=== PATIENT | female | born 1970 | race Caucasian/White ===

== ENCOUNTER 2016-11-27 06:11 | Day surgery (SDC) | payer BC ==
--- NOTE | 2016-11-26 13:09 | HP ---
Satellite [facility] - Chief Complaint Chief Complaint: right knee pain - Past Medical History Allergies/Adverse Reactions: Allergies Allergy/AdvReac Type Severity Reaction Status Date / Time No Known Drug Allergies Allergy Verified 09/04/16 11:36 ...LMP: 02/07/13 ...LMP Comment: 2013 - Current Medications Current Medications: Medication Instructions Recorded Buprenorphine HCl/Naloxone HCl 5.7 each SL BID 11/19/16 [Suboxone 8 mg-2 mg Sl Tablets] Sertraline HCl [Zoloft -] 25 mg PO DAILY 11/19/16 Satellite Physical Exam - Physical Examination General Appearance: Well Nourished, Well Developed, Alert & Oriented x3 ENT: Clear Lung: Normal air movement Heart: Regular rate & rhythm Extremities: Other (right knee- + swelling, + ttp medially, decr rom, nvi xray show severe medial djd) Neurological: Intact, Alert, Oriented Satellite Impression/Plan - Impression/Plan Impression: right medial knee djd Operative Procedure: right medial amadeo ukr Date to be Performed: 11/27/16
[2016-11-27] MEDS ORDERED: GABAPENTIN 300 MG CAPSULE (FP) PO ONE (06:20)
[2016-11-27] MEDS ORDERED: oxyCODONE HCL 10 MG SUSTAINED ACTING TABLET PO ONE (06:20)
[2016-11-27] MEDS ORDERED: CELECOXIB 200 MG CAPSULE PO ONE (06:20)
[2016-11-27] MEDS ORDERED: CEFAZOLIN 2 GM in DEXTROSE 5%-WATER - 50 ML IVPB ONE (06:20)
[2016-11-27] MEDS ORDERED: TRANEXAMIC ACID 1000 MG/10 ML VIAL IVPUSH ONE (06:20)
[2016-11-27] MEDS ORDERED: ROPIVICAINE 0.2%/MORPH PF/KETOROLAC - 51ML DISP.SYRINGE IA ONE ×3 (06:20→09:17)
[2016-11-27 06:47] VITALS: BMI 29.2
[2016-11-27] MEDS ORDERED: MIDAZOLAM HCL 2 MG/2 ML SINGLE DOSE VIAL ONE ×2 (06:52→08:06)
[2016-11-27] MEDS ORDERED: DEXAMETHASONE SOD PHOSPHATE/PF 10 MG/ML SDV ONE (06:52)
[2016-11-27] MEDS ORDERED: ROPIVACAINE HCL 0.5% 30ML VIAL ONE (06:52)
[2016-11-27] MEDS ORDERED: ceFAZolin SODIUM 1 GM VIAL ONE ×2 (07:11→07:56)
[2016-11-27] MEDS ORDERED: GELATIN, ABSORBABLE 100 EACH SPONGE TP ONE (07:11)
[2016-11-27] MEDS ORDERED: THROMBIN (BOVINE) 5,000 UNIT VIAL TP ONE ×2 (07:11→08:55)
[2016-11-27] MEDS ORDERED: PROPOFOL 20 ML ONE ×2 (07:55→08:51)
[2016-11-27] MEDS ORDERED: TRANEXAMIC ACID 1000 MG/10 ML VIAL ONE ×2 (07:56)
[2016-11-27] MEDS ORDERED: DEXAMETHASONE SOD PHOSPHATE 4 MG/1 ML VIAL ONE (09:32)
[2016-11-27] MEDS ORDERED: ONDANSETRON 4 MG/2 ML VIAL ONE (09:32)
[2016-11-27] MEDS ORDERED: MAG HYDROX/AL HYDROX/SIMETH 30 ML UNIT-DOSE CUP PO PRN (09:40)
--- NOTE | 2016-11-27 09:43 | OP ---
Operative Note - Note: Operative Date: 11/27/16 (stephanie) Pre-Operative Diagnosis: right knee medial djd Operation: right medial amadeo ukr Post-Operative Diagnosis: Same as Pre-op Surgeon: Rob Clemente Consultant Electronics: Jerrell Sims) Anesthesiologist/VELVET WEAVER: Elsi Mao Anesthesia: Spinal, Local Specimens Removed: bone fragments Estimated Blood Loss (mls): 100 Operative Report Dictated: Yes
[2016-11-27] MEDS ORDERED: LACTATED RINGERS SOLUTION 1,000 ML IV SCH (09:45)
[2016-11-27] MEDS ORDERED: ONDANSETRON 4 MG/2 ML VIAL IVPB PRN (09:59)
[2016-11-27] MEDS ORDERED: MULTIVITAMINS (DAILY MVI) TABLET (FP) PO SCH (10:00)
[2016-11-27] MEDS ORDERED: PANTOPRAZOLE 40 MG TABLET (FP) PO SCH (10:00)
[2016-11-27] MEDS: ACETAMINOPHEN 325 MG TABLET (FP) PO SCH ×3 (10:45→23:17)
[2016-11-27] MEDS: oxyCODONE HCL 5 MG TABLET PO PRN ×3 (11:06→21:42)
[2016-11-27] MEDS: CEFAZOLIN 2 GM/D5W 50 ML IVPB SCH ×2 (16:00→23:13)
[2016-11-27] MEDS: SERTRALINE HCL 25 MG TABLET (FP) PO SCH (16:08)
--- NOTE | 2016-11-27 16:39 | SPEC ---
DATE OF OPERATION: 11/27/2016 OPERATION: Right medial unicompartmental knee replacement with robotic-assisted navigation (MAKOplasty) and patelloplasty. PREOPERATIVE DIAGNOSIS: Degenerative joint disease, right knee. POSTOPERATIVE DIAGNOSIS: Degenerative joint disease, right knee. SURGICAL ATTENDING: Rob Clemente MD ASSISTANT PROFESSOR OF ENGLISH: eJrrell Sims MD; GELACIO Kelley ANESTHESIA: Spinal and regional. CLOSURE: Medial Sachin components with a No. 3 femur, No. 4 tibia, 8 mm polyethylene, No. 1 Vicryl to fascia, 0 and 2-0 subcutaneous and 3-0 Monocryl subcuticular to skin, with skin glue for skin, 4-0 undyed Vicryl for pin sites. ESTIMATED BLOOD LOSS: Negligible. TOURNIQUET TIME: Approximately 24 minutes. COMPLICATIONS: None. CONDITION: To recovery room in stable condition. PROCEDURE: Patient was taken to the operating room. Spinal and femoral block anesthesia was administered by the anesthesiologist. IV Kefzol and TXA were administered prophylactically prior to the case. A well-padded pneumatic tourniquet was placed on the right proximal thigh. The right lower extremity was prepped and draped in the usual sterile fashion. A 6 cm longitudinal incision was made along the medial retinaculum from mid patella toward the tibial tubercle. Hemostasis was achieved using Bovie cautery. Sharp dissection was carried down to the level of the capsule, which was opened the entire length of incision. Subperiosteal dissection in the anterior medial proximal tibia. Periosteal elevator was used to facilitate this dissection. Partial fat pad excision was performed to gain visualization. A femoral and tibial checkpoint were malleted into place. Two bicortical pins were drilled through small stab incisions into the femur, 1 handbreadth above the patella. Two bicortical pins were drilled into the tibia 1 handbreadth below the tibial tubercle through small stab incisions as well. To these, pins were attached to clamps and the navigation arrays. The knee was then registered with the navigation device by ascertaining the center of rotation of the hip, both the medial and lateral malleoli, at approximately 50 points on the tibia and femur. Registration was within SACHIN parameters, being less than half a millimeter. At this time, the medial osteophytes on both the femur and tibia were removed by use of rongeur. The knee was taken through a range of motion and with stressing the medial compartment open at 0, 30, 60, 90 and 120 degrees. Stress points were obtained in order to develop a flexion / extension and a tightness / looseness graph. The robotic navigation device obtained a virtual tracking of the knee and found that the traction was in excellent position. The components were manipulated virtually in order to obtain a flexion/extension; tightness/looseness graph was then +/- 1 mm. The robot was then brought into the field and registered with the navigation device. The robot was then used to la the bone on both the femur and the tibia to the specifications and direction of the navigation device. All excess bone, osteophytes, and cartilage were removed, including the medial meniscus. Care was taken to protect the MCL throughout the case. The trial components were then placed into the knee with the appropriate polyethylene plastic trial liner. The knee was taken through a range of motion and the graph on the navigation device was then used again to confirm ideal position of the components and ideal tightness/looseness of the components. The trial components were removed, along with the checkpoints and the array. The knee was exsanguinated with an Esmarch bandage and tourniquet inflated to 175 mmHg. The knee was post-antibiotic irrigated and then dried and then Avitene and Gelfoam were placed to aid in hemostasis. The real components were then cemented in using modern generation cement techniques with antibiotics, cement and pressurization. All excess cement was removed. The knee was thoroughly inspected to remove any excess cement and bone fragments. The real polyethylene component was then clipped into place. Range of motion revealed excellent range of motion and good tensioning throughout. The knee was post-antibiotic irrigated. The fascia was closed using 2-0 Vicryl interrupted suture. The tourniquet was deflated. Total tourniquet time was approximately 24 minutes. Hemostasis was obtained. Another dose of TXA was administered. The subcutaneous layer was closed with 2-0 Vicryl, 3-0 Monocryl subcuticular for skin. A pain cocktail was infused throughout the soft tissue. The pin sites were irrigated and closed with 4-0 Vicryl and skin glue was used for all incisions. Sterile Aquacel dressing was placed on all incisions followed by a dressing from the toes to the thigh. Patient was transferred to the recovery room in stable condition. No complications. Primitivo [id number]
[2016-11-27] MEDS: oxyCODONE HCL 10 MG SUSTAINED ACTING TABLET PO SCH (21:43)
[2016-11-27] MEDS: GABAPENTIN 300 MG CAPSULE (FP) PO SCH (21:44)
[2016-11-27] MEDS: SENNOSIDES/DOCUSATE COMBO (SENNA PLUS) TABLET (UD) PO SCH (21:44)
[2016-11-27] MEDS ORDERED: LORazepam 1 MG TABLET PO ONE (22:49)
[2016-11-27] MEDS ORDERED: LORazepam 0.5 MG TABLET ONE (22:51)
[2016-11-28] MEDS: oxyCODONE HCL 5 MG TABLET PO PRN ×2 (02:14→06:28)
[2016-11-28] MEDS ORDERED: LORazepam 0.5 MG TABLET ONE (02:28)
[2016-11-28] MEDS ORDERED: LORazepam 1 MG TABLET PO ONE (02:29)
[2016-11-28] MEDS: ACETAMINOPHEN 325 MG TABLET (FP) PO SCH ×2 (06:28→06:29)
[2016-11-28 06:43] VITALS: BP 91/52; PULSE 65; TEMP 98.5
[2016-11-28] MEDS ORDERED: ASPIRIN 325 MG TABLET PO SCH (08:00)
--- NOTE | 2016-11-28 08:25 | PN ---
Progress Note (short form) - Note Progress Note: Ortho Pt seen and examined s/p right medial amadeo ukr pod #1 Selected Entries 11/28/16 06:43 Temperature 98.5 F Pulse Rate 65 Respiratory 19 Rate Blood Pressure 91/52 dressing c/d/i, calf soft, nt rom 0-60, nvi a/p PT dvt ppx pain control d/c home today f/u in 1 week
--- NOTE | 2016-11-28 08:26 | DS ---
Physical Examination Vital Signs: Vital Signs Temperature 98.5 F 11/28/16 06:43 Pulse Rate 65 11/28/16 06:43 Respiratory Rate 19 11/28/16 07:28 Blood Pressure 91/52 11/28/16 06:43 O2 Sat by Pulse Oximetry (%) 96 11/28/16 07:28 Discharge Summary Reason For Visit: RIGHT KNEE OSTEOARTHRITIS Procedures: Principal: s/p right medial amadeo ukr Hospital Course: admitted for elective right medial amadeo ukr, uneventful post-op, stable for d/c Condition: Good - Instructions Diet, Activity, Other Instructions: Post-op Instructions-Partial Knee Replacement Call the office for a follow-up appointment in 1 week - [phone] Aspirin 325mg daily for 6 weeks. Pain medication was sent into your pharmacy. Apply Graduated Compression Stockings (TEDs) to both lower extremities- remove daily for hygiene ONLY Apply Sequential Compression Device (SCDs) to both Lower extremities remove for PT and hygiene ONLY Apply cold packs to affected area for 15 minutes every 2 hours. Physical Therapist will come to your home for the first 5 days. You will be set up with outpatient PT at your first post-operative visit. Patient may ambulate as tolerated-encourage self care (at least every 2-3 hours while awake) with walker or cane Maintain Aquacel (waterproof) dressing to operative wound (will be removed by surgeon at first office visit) Shower with Aquacel dressing in place-if Aquacel integrity compromised, remove and apply dry sterile dressing and notify Orthopedist. DO NOT SHOWER unless Orthopedists approves without Aquacel dressing CONTACT THE OFFICE FOR ANY CHANGE IN YOUR CONDITION (for example-fever greater than 102 degrees,excessive bleeding from operative site, purulent drainage, severe swelling or pain) GO TO THE EMERGENCY ROOM IF THERE IS A MEDICAL EMERGENCY Knee Precautions: * Keep a rolled towel under affected heel while in bed or chair (to keep knee in extension) * Keep affected leg elevated except during mealtimes * DO NOT PLACE PILLOW UNDER AFFECTED KNEE * If you have any questions, please do not hesitate to call the office - [phone]. Referrals: Jerrell Sims MD [Staff Physician] - Disposition: VNS/HOME HEALTH CARE - Home Medications Comprehensive Discharge Medication List: Ambulatory Orders Sertraline HCl [Zoloft -] 25 mg PO DAILY 11/19/16 Aspirin [ASA -] 325 mg PO DAILY@0800 tablet 11/27/16 Buprenorphine HCl/Naloxone HCl [Zubsolv 5.7-1.4 mg Tablet Sl] 1 each SL BID Oxycodone HCl/Acetaminophen [Percocet 10-325 mg Tablet] 1 each PO Q6H #50 tablet MDD 4 11/27/16 Oxycodone HCl [Roxicodone -] 15 mg PO Q4H PRN #50 tablet MDD 6 11/28/16
[2016-11-28] MEDS: GABAPENTIN 300 MG CAPSULE (FP) PO SCH (10:11)
[2016-11-28] MEDS: SENNOSIDES/DOCUSATE COMBO (SENNA PLUS) TABLET (UD) PO SCH (10:11)
[2016-11-28] MEDS: oxyCODONE HCL 10 MG SUSTAINED ACTING TABLET PO SCH (10:11)
[2016-11-28] MEDS: SERTRALINE HCL 25 MG TABLET (FP) PO SCH (10:12)
== END 2016-11-28 11:37 | disposition home health service (06) ==
LOC: FASU 06:11 → FM/S 06:20 → FASU 11-28 11:37
PROVIDERS: ATTEND Orthopaedic Surgery
PROC: 8E0YXBZ Computer Assisted Procedure of Lower Extremity (ICD-10-PCS; 2016-11-27)
PROC: 0SRC0LZ Replacement of Right Knee Joint with Medial Unicondylar Synthetic Substitute, Open Approach (ICD-10-PCS; principal; 2016-11-27 08:00)
DX: M17.11 Unilateral primary osteoarthritis, right knee (principal)
CPT/HCPCS: 20985; 27446; C1776; 73560-TC-RT; 84703; 94760; 97116-GP; 97162-PG

== ENCOUNTER → 2016-12-22 | Emergency (ER) | payer BC ==
[~2016-12-22] MED LIST: CEPHALEXIN MONOHYDRATE 250 MG CAPSULE (FP) ONE; CEPHALEXIN MONOHYDRATE 500 MG CAPSULE (UD) PO ONE; HYDROmorphone HCL 2 MG TABLET ONE; HYDROmorphone HCL 2 MG TABLET PO ONE
[2016-12-22 19:06] VITALS: BP 137/97; PULSE 108; TEMP 98.4; BMI 29.4
--- NOTE | 2016-12-22 19:44 | PDOC ---
History of Present Illness - General Chief Complaint: Edema Stated Complaint: RT KNEE SWOLLEN Time Seen by Provider: 12/22/16 19:24 History Source: Patient Exam Limitations: No Limitations - History of Present Illness Initial Comments: 12/22/16 19:36 46yo Female patient with history of drug abuse (Percocet), currently on Zubsolv presents to ED c/o right lower leg swelling. Patient states Nov 27, she has a partial knee replacement by Dr. Sims/Bryn. She states she has been experiencing intermittent swelling "here and there," was on Oxycodone 15mg x 8 days, then tapered down to Tramadol 50mg "which did nothing for me." Patient states yesterday her right calf/leg began swelling more than usual with pain to calf when ambulating. Patient called her PCP and was instructed to seek evaluation in ED, but waited until today to see if symptom would resolve. Her symptom have actually worsened and is concerned about clot. Patient reports she did not take her 7pm dose of Zubsolv so she can be medicated for pain. Patient states the only narcotic pain medication she can take is Dilaudid. She denies CP , fever, back pain, abd pain, n/v/d, diff breathing, coughing or any other complaints at this time. PCP Dr. Rodriguez Ortho Dr. Sims/Bryn logo Welcome Fuentes Daniels Update Personal Info | FAQ | Help | Search Results Help Mandatory Electronic Prescribing Effective as of January 22, 2016. Additional information pertaining to electronic prescribing may be accessed at the following link: http://www.health.mo.gov/professionals/narcotic/electronic_ prescribing/ Patient Search Multi-Patient Search Reports Drug Listing Designation My CHRISTINE Numbers Data Detail Level: Printer-Friendly View | Show Extended View Confidential Drug Utilization Report Search Terms: Heather Cr, 1970 Search Date: 12/22/2016 07:35:43 PM The Drug Utilization Report below displays all of the controlled substance prescriptions, if any, that your patient has filled in the last twelve months. The information displayed on this report is compiled from pharmacy submissions to the Department, and accurately reflects the information as submitted by the pharmacies. This report was requested by: Fuentes Daniels | Reference #: [id number] Others' Prescriptions Patient Name: Heather Cr Date: 1970 Address: [address] [place] [address] [address] JUAREZ [employer] [place] [address] Sex: Female Rx Written Rx Dispensed Drug Quantity Days Supply Prescriber Name 12/19/2016 12/19/2016 zubsolv 5.7-1.4 mg tablet sl 60 30 Henrique Koch MD 12/19/2016 12/19/2016 methylphenidate 5 mg tablet 60 30 Talya Fields 12/11/2016 12/11/2016 tramadol hcl 50 mg tablet 60 30 Alvaro Rodriguez MD 12/11/2016 12/11/2016 zolpidem tartrate 10 mg tablet 14 14 Alvaro Rodriguez MD 11/28/2016 11/28/2016 oxycodone hcl 15 mg tablet 50 8 RaymundoNain 11/22/2016 11/22/2016 zolpidem tartrate 10 mg tablet 14 14 Alvaro Rodriguez MD 11/09/2016 11/11/2016 zubsolv 5.7-1.4 mg tablet sl 60 30 Alvaro Rodriguez MD 11/09/2016 11/10/2016 methylphenidate 5 mg tablet 60 30 Alvaro Rodriguez MD 10/12/2016 10/13/2016 zubsolv 5.7-1.4 mg tablet sl 60 30 Alvaro Rodriguez MD 10/12/2016 10/12/2016 methylphenidate 5 mg tablet 60 30 Alvaro Rodriguez MD 09/14/2016 09/14/2016 methylphenidate 5 mg tablet 55 27 Alvaro Rodriguez MD 09/14/2016 09/14/2016 zubsolv 5.7-1.4 mg tablet sl 60 30 Alvaro Rodriguez MD 08/17/2016 08/17/2016 methylphenidate 5 mg tablet 60 30 Alvaro Rodriguez MD 08/17/2016 08/17/2016 zubsolv 5.7-1.4 mg tablet sl 60 30 Alvaro Rodriguez MD 07/20/2016 07/20/2016 methylphenidate 5 mg tablet 60 30 Alvaro Rodriguez MD 07/20/2016 07/20/2016 zubsolv 5.7-1.4 mg tablet sl 60 30 Alvaro Rodriguez MD 06/22/2016 06/22/2016 methylphenidate 5 mg tablet 60 30 Alvaro Rodriguez MD 06/22/2016 06/22/2016 zubsolv 5.7-1.4 mg tablet sl 60 30 Alvaro Rodriguez MD 05/31/2016 05/31/2016 zolpidem tartrate 10 mg tablet 14 14 Alvaro Rodriguez MD 05/25/2016 05/25/2016 zubsolv 5.7-1.4 mg tablet sl 60 30 Alvaro Rodriguez MD 05/25/2016 05/25/2016 methylphenidate 5 mg tablet 60 30 Alvaro Rodriguez MD 04/24/2016 04/24/2016 methylphenidate 5 mg tablet 60 30 Henrique Koch MD 04/24/2016 04/24/2016 zubsolv 5.7-1.4 mg tablet sl 60 30 Henrique Koch MD 03/23/2016 03/24/2016 methylphenidate 5 mg tablet 60 30 Alvaro Rodriguez MD 03/23/2016 03/23/2016 zubsolv 5.7-1.4 mg tablet sl 60 30 Alvaro Rodriguez MD 02/24/2016 02/24/2016 zolpidem tartrate 5 mg tablet 30 30 Alvaro Rodriguez MD 02/24/2016 02/24/2016 methylphenidate 5 mg tablet 60 30 Alvaro Rodriguez MD 02/24/2016 02/24/2016 zubsolv 5.7-1.4 mg tablet sl 60 30 Alvaro Rodriguez MD 01/26/2016 01/26/2016 methylphenidate 5 mg tablet 60 30 Henrique Koch MD 01/26/2016 01/26/2016 zubsolv 5.7-1.4 mg tablet sl 60 30 Henrique Koch MD 12/29/2015 01/03/2016 zubsolv 5.7-1.4 mg tablet sl 60 30 Alvaro Rodriguez MD Patient Name: Heather Cr Date: 1970 Address: [place] [address] Sex: Female Rx Written Rx Dispensed Drug Quantity Days Supply Prescriber Name 12/05/2016 12/05/2016 oxycodone-acetaminophen 10-325 mg tablet 60 10 Jerrell Sims MD Patient Name: Heather Cr Date: 1970 Address: [address] [place] [address] Sex: Female Rx Written Rx Dispensed Drug Quantity Days Supply Prescriber Name 12/29/2015 12/29/2015 methylphenidate 5 mg tablet 60 30 Alvaro Rodriguez MD Occurred: reports: yesterday Severity: Yes: severe Lower Extremity Pain Location: right: leg (Swelling and Pain) Method of Injury: Yes: other (S/P surgery) Modifying Factors: improves with: rest, other (Leg elevation) Associated Symptoms: None reported. Lower Ext. Injury Location - Specific Injury Location Legs: right: pain, swelling, left: normal inspection, non-tender, bilateral: normal range of motion Ankle: right soft tissue tenderness, right pain, right swelling, left normal inspection, left non-tender, bilateral no evidence of injury, bilateral normal range of motion Foot: right foot swelling, left foot normal inspection, bilateral foot no evidence of injury, bilateral foot normal range of motion Extremity Pain Location - Extremity Pain Location Extremity Pain Locations: right: leg Past History - Travel Traveled outside of the country in the last 30 days: No Close contact w/someone who was outside of country & ill: No - Past Medical History Allergies/Adverse Reactions: Allergies Allergy/AdvReac Type Severity Reaction Status Date / Time No Known Drug Allergies Allergy Verified 12/22/16 19:03 Home Medications: Ambulatory Orders Sertraline HCl [Zoloft -] 25 mg PO DAILY 11/19/16 Aspirin [ASA -] 325 mg PO DAILY@0800 tablet 11/27/16 Buprenorphine HCl/Naloxone HCl [Zubsolv 5.7-1.4 mg Tablet Sl] 1 each SL BID Oxycodone HCl/Acetaminophen [Percocet 10-325 mg Tablet] 1 each PO Q6H #50 tablet MDD 4 11/27/16 Oxycodone HCl [Roxicodone -] 15 mg PO Q4H PRN #50 tablet MDD 6 11/28/16 Oxycodone HCl [Roxicodone] 15 mg PO Q4H #50 tablet MDD 6 11/28/16 Cephalexin [Keflex] 500 mg PO BID #10 capsule 12/22/16 Anemia: No Asthma: No Cancer: No Cardiac Disorders: Yes CVA: No COPD: No CHF: No Dementia: No Diabetes: No GI Disorders: Yes (sphincter of christos spasms) Disorders: Yes (u stones) HTN: No Hypercholesterolemia: No Kidney Stones: Yes Liver Disease: No Seizures: No Thyroid Disease: Yes (hypothyroid) - Surgical History Abdominal Surgery: No Appendectomy: No Cardiac Surgery: No Cholecystectomy: Yes Lung Surgery: No Neurologic Surgery: No Orthopedic Surgery: Yes (R. Knee arthroscopic sx.) - Immunization History Immunization Up to Date: Yes - Psycho/Social/Smoking Cessation Hx Anxiety: No Suicidal Ideation: No Smoking Status: Yes Smoking History: Current every day smoker Have you smoked in the past 12 months: Yes Number of Cigarettes Smoked Daily: 20 Information on smoking cessation initiated: No 'Breaking Loose' booklet given: 11/20/13 Hx Alcohol Use: No Drug/Substance Use Hx: No Substance Use Type: Prescribed Hx Substance Use Treatment: No Review of Systems - Review of Systems Able to Perform ROS?: Yes Is the patient limited Taiwanese proficient: No Musculoskeletal: Yes: Other (RLE Swelling and Pain) All Other Systems: Reviewed and Negative *Physical Exam - Vital Signs Last Vital Signs Temp Pulse Resp BP Pulse Ox 98.4 F 108 H 20 137/97 97 12/22/16 19:03 12/22/16 19:03 12/22/16 19:03 12/22/16 19:03 12/22/16 19:03 - Physical Exam General Appearance: Yes: Nourished, Appropriately Dressed. No: Apparent Distress, Mild Distress, Moderate Distress, Severe Distress Neck: positive: Trachea midline, Supple. negative: Stridor Respiratory/Chest: positive: Lungs Clear, Normal Breath Sounds. negative: Respiratory Distress, Accessory Muscle Use, Labored Respiration, Rhonchi, Stridor, Wheezing Cardiovascular: positive: Regular Rhythm, Regular Rate. negative: Edema, JVD, Murmur Musculoskeletal: positive: Normal Inspection. negative: CVA Tenderness, Vertebral Tenderness Extremity: positive: Normal Capillary Refill, Normal Range of Motion, Tender, Pedal Edema, Swelling, Calf Tenderness (+ Debora's Sign). negative: Normal Inspection (Rt LE) Integumentary: positive: Normal Color, Dry, Warm, Swelling. negative: Erythema , Hives, Petechiae, Rash, Ecchymosis, Bruising Neurologic: positive: melt house supervisor II-XII NML intact, Fully Oriented, Alert, Normal Mood/ Affect, Normal Response, Motor Strength 5/5 ED Treatment Course - LABORATORY CBC & Chemistry Diagram: 12/22/16 19:50 12/22/16 19:50 Progress Note - Progress Note Progress Note: Report Viewer powered by: STEPHY Name: Shaye Romero : 1970 Sex: F Study Date & Time: 12/22/201620:11:43 Description: DUPLEX VASCULAR US-1 LEG Head Shipper: (chiquita) Begin of Report Content Referring Physician: Scottie Daniels Patient Name: Heather Cr THIS IS A PRELIMINARY REPORT FROM [facility] DATE OF SERVICE: 2016-12-22 20:11:43.0 IMAGES: 22 EXAM: right lower extremity venous duplex study HISTORY:Swelling and pain COMPARISON: None. FINDINGS: No acute DVT. THIS DOCUMENT HAS BEEN ELECTRONICALLY SIGNED Karolina MD Chuyita 12/22/2016 20:50 EST M.D. Please call [facility] [phone] ([phone]) with questions. End of Report Content *DC/Admit/Observation/Transfer Diagnosis at time of Disposition: Right leg swelling - Discharge Dispostion Disposition: HOME Condition at time of disposition: Stable Admit: No - Prescriptions Prescriptions: Cephalexin [Keflex] 500 mg PO BID #10 capsule - Referrals Referrals: Jerrell Sims MD [Staff Physician] - Alvaro Rodriguez MD [Staff Physician] - - Patient Instructions Printed Discharge Instructions: DI for Leg Pain Additional Instructions: FOLLOW UP WITH DR. SIMS/BRYN OR DR. RODRIGUEZ FOR FURTHER EVALUATION. CALL TO SCHEDULE APPOINTMENT. TAKE MEDICATIONS PRESCRIBED. KEEP LEG ELEVATED, TYLENOL OR MOTRIN FOR PAIN. AVOID PROLONGED STANDING. APPLY ICE TO AFFECTED AREA EVERY 4-6 HOURS FOR 10-15 MINS ON AND OFF. RETURN IF ANY CONCERNS FOR FURTHER EVALUATION. Print Language: KYRGYZ
[2016-12-22 20:12] LABS: BASOPHIL 1.1 % (0-2.0); EOSINOPHIL 5.7 % (0-4.5); MCH 31.6 pg (25.7-33.7); MCHC 34.3 g/dl (32.0-36.0); MEAN CELL VOLUME 92.1 fl (80-96); MEAN PLT VOLUME 7.8 fl (7.5-11.1); NEUTROPHILS 47.6 % (42.8-82.8); PLATELET COUNT 337 K/MM3 (134-434); RDW 13.1 % (11.6-15.6); WHITE BLOOD COUNT 6.7 K/mm3 (4.0-10.0)
[2016-12-22 20:19] LABS: URINE APPEARANCE CLEAR; URINE BILIRUBIN NEGATIVE (NEGATIVE); URINE BLOOD NEGATIVE (NEGATIVE); URINE COLOR LTYELLOW; URINE GLUCOSE (UA) NEGATIVE (NEGATIVE); URINE KETONE NEGATIVE (NEGATIVE); URINE LEUK ESTERASE NEGATIVE (NEGATIVE); URINE NITRITE NEGATIVE (NEGATIVE); URINE PROTEIN NEGATIVE (NEGATIVE); URINE UROBILINOGEN NEGATIVE E.U./dl (0.2-1.0)
[2016-12-22 20:24] LABS: INR 1.01 (0.82-1.09); PROTHROMBIN TIME (PATIENT) 11.1 SEC (9.98-11.88)
[2016-12-22 20:33] LABS: ALBUMIN 3.6 g/dl (3.4-5.0); ANION GAP 7 (8-16); BILIRUBIN,TOTAL 0.2 mg/dL (0.2-1.0); CALCIUM 9.3 mg/dL (8.5-10.1); CO2 28 mmol/L (21-32); CREATININE 0.7 mg/dL (0.55-1.02); GLUCOSE,RANDOM 88 mg/dL (74-106); SGOT/AST 20 U/L (15-37); SGPT/ALT 25 U/L (12-78); TOT PROT 6.9 g/dl (6.4-8.2)
[2016-12-22 20:34] LABS: ALK PHOS 74 U/L (45-117)
== END | disposition home or self-care (01) ==
LOC: JER 18:50
DX: R60.0 Localized edema (principal)
CPT/HCPCS: 36415; 80053; 81003; 84703; 85025; 85610; 93971-TC; 99283-25

== ENCOUNTER 2019-01-27 08:32 | Day surgery (SDC) | payer BC ==
[2019-01-12 10:41] VITALS: BMI 37.1
[2019-01-27 08:51] VITALS: TEMP 98.2
[2019-01-27] MEDS ORDERED: BETAMET ACET/BETAMET NA PH 30 MG/5 ML VIAL ONE (10:25)
[2019-01-27] MEDS ORDERED: BUPIVACAINE HCL/PF 0.25% (2.5MG/ML) 10 ML VIAL ONE (10:25)
[2019-01-27] MEDS ORDERED: MIDAZOLAM HCL 2 MG/2 ML SINGLE DOSE VIAL ONE (11:28)
[2019-01-27] MEDS ORDERED: PROPOFOL 20 ML ONE (11:28)
[2019-01-27] MEDS ORDERED: LIDOCAINE HCL/PF 2% SDV 5ML VIAL ONE (11:28)
[2019-01-27] MEDS ORDERED: BUPIVACAINE HCL/PF 0.5% (5MG/ML) 10 ML VIAL ONE (11:33)
[2019-01-27] MEDS ORDERED: IOHEXOL 180 MG/1 ML ML IJ ONE (11:39)
[2019-01-27] MEDS ORDERED: LIDOCAINE HCL 1%, 10 MG/ML (20ML VIAL) NR ONE (11:39)
[2019-01-27] MEDS ORDERED: BETAMET ACET/BETAMET NA PH 30 MG/5 ML VIAL NR ONE (11:39)
[2019-01-27] MEDS ORDERED: BUPIVACAINE HCL/PF (5 MG/ML) 30 ML VIAL IJ ONE ×2 (11:39)
[2019-01-27 12:32] VITALS: BP 114/76; PULSE 86
== END 2019-01-27 13:15 | disposition home or self-care (01) ==
LOC: JASU-SURG 08:32
PROVIDERS: ATTEND Physical Medicine & Rehabilitation
PROC: 3E0T33Z Introduction of Anti-inflammatory into Peripheral Nerves and Plexi, Percutaneous Approach (ICD-10-PCS; 2019-01-27)
PROC: 3E0T3BZ Introduction of Anesthetic Agent into Peripheral Nerves and Plexi, Percutaneous Approach (ICD-10-PCS; principal; 2019-01-27 10:00)
DX: G90.521 Complex regional pain syndrome I of right lower limb (principal); M46.96 Unspecified inflammatory spondylopathy, lumbar region
CPT/HCPCS: 84703

== ENCOUNTER 2019-05-22 08:22 | Day surgery (SDC) | payer BC ==
[2019-05-21 16:00] VITALS: BMI 37.4
[2019-05-22] MEDS ORDERED: IOHEXOL 180 MG/1 ML ML IT ONE (09:46)
[2019-05-22] MEDS ORDERED: PROPOFOL 20 ML ONE ×2 (09:52)
[2019-05-22] MEDS ORDERED: BUPIVACAINE HCL/PF 0.5% (5MG/ML) 10 ML VIAL ONE (09:56)
[2019-05-22] MEDS ORDERED: BUPIVACAINE HCL/PF 0.5% (5MG/ML) 10 ML VIAL IJ ONE (10:00)
[2019-05-22] MEDS ORDERED: BETAMET ACET/BETAMET NA PH 30 MG/5 ML VIAL IM ONE (10:00)
[2019-05-22] MEDS ORDERED: LIDOCAINE HCL 1%, 10 MG/ML (20ML VIAL) INF ONE (10:00)
[2019-05-22 12:06] VITALS: BP 130/70; PULSE 80; TEMP 97.8
== END 2019-05-22 11:45 | disposition home or self-care (01) ==
LOC: JASU-SURG 08:22
PROVIDERS: ATTEND Physical Medicine & Rehabilitation
PROC: 3E0R33Z Introduction of Anti-inflammatory into Spinal Canal, Percutaneous Approach (ICD-10-PCS; 2019-05-22)
PROC: 3E0R3BZ Introduction of Anesthetic Agent into Spinal Canal, Percutaneous Approach (ICD-10-PCS; principal; 2019-05-22 09:30)
DX: M46.96 Unspecified inflammatory spondylopathy, lumbar region (principal); M54.5 Low back pain; I10 Essential (primary) hypertension; J44.9 Chronic obstructive pulmonary disease, unspecified; E66.01 Morbid (severe) obesity due to excess calories; K21.9 Gastro-esophageal reflux disease without esophagitis
CPT/HCPCS: 76000-TC-FY

== ENCOUNTER 2019-07-20 07:21 | Day surgery (SDC) | payer BC ==
[2019-07-17 13:01] VITALS: BMI 37.0
[2019-07-20] MEDS ORDERED: ONDANSETRON 4 MG/2 ML VIAL IVPUSH PRN (07:54)
[2019-07-20] MEDS ORDERED: ACETAMINOPHEN 325 MG TABLET (FP) PO PRN (07:54)
[2019-07-20] MEDS ORDERED: oxyCODONE HCL 5 MG TABLET PO PRN (07:54)
[2019-07-20] MEDS ORDERED: LIDOCAINE HCL 1%, 10 MG/ML (20ML VIAL) ONE (08:58)
[2019-07-20] MEDS ORDERED: BETAMET ACET/BETAMET NA PH 30 MG/5 ML VIAL ONE (08:58)
[2019-07-20] MEDS ORDERED: BUPIVACAINE HCL/PF 0.25% (2.5MG/ML) 10 ML VIAL ONE (08:58)
[2019-07-20] MEDS ORDERED: TRIAMCINOLONE ACET 40MG/1ML VIAL ONE (09:00)
[2019-07-20] MEDS ORDERED: BETAMET ACET/BETAMET NA PH 30 MG/5 ML VIAL IM ONE (09:00)
[2019-07-20] MEDS ORDERED: LIDOCAINE HCL 1%, 10 MG/ML (20ML VIAL) NR ONE ×2 (09:00→09:22)
[2019-07-20] MEDS ORDERED: IOHEXOL 180 MG/1 ML ML IJ ONE ×2 (09:00→09:22)
[2019-07-20] MEDS ORDERED: TRIAMCINOLONE ACET 40MG/1ML VIAL IM ONE ×2 (09:00→09:22)
[2019-07-20] MEDS ORDERED: BUPIVACAINE HCL/PF 0.5% (5MG/ML) 10 ML VIAL IJ ONE ×2 (09:00→09:22)
[2019-07-20] MEDS ORDERED: MIDAZOLAM HCL 2 MG/2 ML SINGLE DOSE VIAL ONE (09:12)
[2019-07-20] MEDS ORDERED: PROPOFOL 20 ML ONE (09:12)
[2019-07-20] MEDS ORDERED: BUPIVACAINE HCL/PF 0.5% (5 MG/ML) 30 ML VIAL IJ ONE (09:37)
[2019-07-20 09:40] VITALS: TEMP 97.8
[2019-07-20 10:24] VITALS: BP 134/91; PULSE 76
--- NOTE | 2019-08-05 21:52 | PROC ---
Procedure Note Procedure: Date of service: 07/20/2019 Preoperative Diagnosis: Low back pain and Bilateral SIJ dysfunction Postoperative Diagnosis: Same Procedure Performed: Bilateral SIJ steroid injection with dye under Fluoroscopy Anesthesia: Local / MAC Anesthesiologist: Procedure: I discussed with the patient in detail about the risks, benefits and alternatives to treatment not only limited to infection, headache, numbness, weakness and injury to nerves, blood vessels and muscles. The patient understood, agreed and signed the written consent. The patient was placed in the prone position with the head, abdomen and legs supported with the pillows. The lumbosacral area was prepped and draped with Betadine times three in a sterile fashion The right SIJ was identified under the C-arm and at this level , with a #25 G, 1-1/2 needle 2 ml of 1% Lidocaine was infiltrated in the skin and subcutaneous tissue. A #22 gauge 3-1/2 inch spinal needle was used to approach SI joint with intermittent fluoroscopy. After negative aspiration of blood, 1 ml of omnipaque 180 (radio opaque dye) was used to confirm the spread of dye in the joint space. A solution containing Kenalog 40 mg and 3 ml of bupivacaine 0.5% was prepared, and 2 ml was injected into the SI joint level. While the needle was withdrawn, 1 ml of Lidocaine was infiltrated. The similar procedure was repeated on Left SIJ. Bleeding was checked. Betadine was wiped off. A sterile bandage was placed. The patient tolerated the procedure well. There were no immediate complications. The patient was transferred to the recovery room. The patient was observed for some time and discharged with a family member as per ASC criteria. The patient was told to apply ice at the injection site. If any problem call me or report to [facility]. Terrance Goddard M.D.
== END 2019-07-20 10:26 | disposition home or self-care (01) ==
LOC: JASU-SURG 07:21
PROVIDERS: ATTEND Physical Medicine & Rehabilitation
PROC: 3E0U3BZ Introduction of Anesthetic Agent into Joints, Percutaneous Approach (ICD-10-PCS; 2019-07-20)
PROC: 3E0U33Z Introduction of Anti-inflammatory into Joints, Percutaneous Approach (ICD-10-PCS; principal; 2019-07-20 08:30)
DX: M51.26 Other intervertebral disc displacement, lumbar region (principal); M54.16 Radiculopathy, lumbar region; Z72.0 Tobacco use
CPT/HCPCS: 76000-TC-FY

== ENCOUNTER 2021-05-29 04:24 | Day surgery (SDC) | payer BC ==
[2021-05-25 11:21] VITALS: BMI 39.3
[2021-05-29] MEDS ORDERED: MIDAZOLAM HCL 2 MG/2 ML SINGLE DOSE VIAL ONE (13:44)
[2021-05-29] MEDS ORDERED: IOHEXOL 180 MG/1 ML ML IJ ONE (13:58)
[2021-05-29] MEDS ORDERED: BUPIVACAINE HCL/PF 0.25% (2.5MG/ML) 10 ML VIAL IJ ONE (13:59)
[2021-05-29] MEDS ORDERED: PROPOFOL 20 ML ONE (13:59)
[2021-05-29] MEDS ORDERED: LIDOCAINE HCL 1%, 10 MG/ML (50 mL VIAL) SQ ONE ×2 (14:01)
[2021-05-29] MEDS ORDERED: DEXAMETHASONE SOD PHOSPHATE 10 MG/1 ML VIAL IVPUSH ONE (14:02)
[2021-05-29 15:24] VITALS: TEMP 97.8
[2021-05-29 16:10] VITALS: BP 112/72; PULSE 82
== END 2021-05-29 16:11 | disposition home or self-care (01) ==
LOC: JASU-SURG 04:24
PROVIDERS: ATTEND Physical Medicine & Rehabilitation
PROC: 3E0T3BZ Introduction of Anesthetic Agent into Peripheral Nerves and Plexi, Percutaneous Approach (ICD-10-PCS; 2021-05-29)
PROC: 3E0T33Z Introduction of Anti-inflammatory into Peripheral Nerves and Plexi, Percutaneous Approach (ICD-10-PCS; principal; 2021-05-29 14:30)
DX: G90.521 Complex regional pain syndrome I of right lower limb (principal)
CPT/HCPCS: 76000-TC-FY; J1100

== ENCOUNTER 2023-06-10 04:21 | Day surgery (SDC) | payer BC ==
[2023-06-05 16:49] VITALS: BMI 37.5
[2023-06-10] MEDS ORDERED: MIDAZOLAM HCL 2 MG/2 ML SINGLE DOSE VIAL ONE ×2 (11:23→11:40)
[2023-06-10] MEDS ORDERED: LIDOCAINE HCL 1% PRESERVATIVE FREE - 30ML VIAL IJ ONE (11:30)
[2023-06-10] MEDS ORDERED: IOHEXOL 180 MG/1 ML ML IJ ONE (11:30)
[2023-06-10] MEDS ORDERED: DEXAMETHASONE SOD PHOSPHATE 10 MG/1 ML VIAL IVPUSH ONE (11:31)
[2023-06-10] MEDS ORDERED: BUPIVACAINE HCL/PF 0.5% (5MG/ML) 10 ML VIAL IJ ONE (11:31)
[2023-06-10] MEDS ORDERED: BUPIVACAINE HCL/PF 0.25% (2.5MG/ML) 10 ML VIAL ONE (12:25)
[2023-06-10] MEDS ORDERED: ACETAMINOPHEN INJECTION 100 ML IVPB ONE (12:31)
[2023-06-10] MEDS ORDERED: ACETAMINOPHEN 1000 MG/100 ML BAG IVPB ONE (12:32)
[2023-06-10 14:40] VITALS: BP 124/72; PULSE 66; RESP 16; TEMP 98
== END 2023-06-10 13:48 | disposition home or self-care (01) ==
LOC: JASU-SURG 04:21
PROVIDERS: ATTEND Physical Medicine & Rehabilitation
PROC: 3E0T33Z Introduction of Anti-inflammatory into Peripheral Nerves and Plexi, Percutaneous Approach (ICD-10-PCS; 2023-06-10)
PROC: 3E0T3BZ Introduction of Anesthetic Agent into Peripheral Nerves and Plexi, Percutaneous Approach (ICD-10-PCS; principal; 2023-06-10 10:00)
DX: M79.604 Pain in right leg (principal); M79.671 Pain in right foot
CPT/HCPCS: 76000-TC-FY; J1100

== ENCOUNTER 2024-01-17 10:19 | Inpatient (IN) | payer BC ==
[2024-01-17] MEDS: ALBUTEROL SO4 2.5/IPRATROPIUM 0.5 INH SOL 3 ML VIAL.NEB. NEB SCH (11:42)
[2024-01-17] MEDS ORDERED: ALBUTEROL SO4 2.5/IPRATROPIUM 0.5 INH SOL 3 ML VIAL.NEB. NEB ONE (11:43)
[2024-01-17] MEDS ORDERED: predniSONE 20 MG TABLET (UD) ONE (12:02)
[2024-01-17] MEDS: predniSONE 20 MG TABLET (UD) PO ONE (12:02)
[2024-01-17 12:13] LABS: BASO % 0.1 % (0-2.0); HEMATOCRIT 39.7 % (32.4-45.2); HEMOGLOBIN 13.5 GM/dL (10.7-15.3); LYMPH % 7.3 % (8-40); MCH 30.6 pg (25.7-33.7); MEAN CELL VOLUME 89.8 fl (80-96); MEAN PLT VOLUME 7.4 fl (7.5-11.1); MONO % 10.1 % (3.8-10.2); NEUT % 82.5 % (42.8-82.8); PLATELET COUNT 262 10^3/uL (134-434); RBC 4.42 M/mm3 (3.60-5.2); RDW 14.4 % (11.6-15.6); WHITE BLOOD COUNT 6.5 K/mm3 (4.0-10.0)
[2024-01-17 12:22] LABS: INR 1.18 (0.83-1.09); PROTHROMBIN TIME (PATIENT) 13.7 SEC (9.7-13.0)
[2024-01-17 12:24] LABS: ACTIVATED PTT 31.4 SECONDS (25.2-36.5)
[2024-01-17 12:38] LABS: VENOUS BASE EXCESS -0.7 mmol/L (-2-2); VENOUS O2 SATURATION 71.4 % (70-80); VENOUS PCO2 61.4 mmHg (38-52); VENOUS PH 7.27 (7.310-7.410)
[2024-01-17 12:41] LABS: POTASSIUM 4.3 mmol/L (3.5-5.1)
[2024-01-17 12:43] LABS: BLOOD UREA NITROGEN 10.7 mg/dL (7-18); CALCIUM 8.6 mg/dL (8.5-10.1)
[2024-01-17 12:44] LABS: ALBUMIN 3.3 g/dl (3.4-5.0)
[2024-01-17 12:47] LABS: CREATININE 0.7 mg/dL (0.55-1.3)
[2024-01-17 12:48] LABS: BILIRUBIN,TOTAL 0.4 mg/dL (0.2-1); TOT PROT 7.2 g/dl (6.4-8.2)
[2024-01-17] MEDS: ACETAMINOPHEN 1000 MG/100 ML BAG IVPB ONE (13:55)
[2024-01-17] MEDS ORDERED: ACETAMINOPHEN INJECTION 100 ML IVPB ONE (13:56)
[2024-01-17] MEDS ORDERED: OSELTAMIVIR PHOSPHATE 75 MG CAPSULE ONE (14:35)
[2024-01-17] MEDS ORDERED: CEFTRIAXONE 1 GM/50 ML BAG ONE (14:36)
[2024-01-17] MEDS ORDERED: AZITHROMYCIN IVPB 500 MG/250 ML BAG IVPB ONE (14:36)
[2024-01-17] MEDS: OSELTAMIVIR PHOSPHATE 75 MG CAPSULE PO ONE (14:43)
[2024-01-17] MEDS: AZITHROMYCIN IVPB 500 MG in DEXTROSE 5%-WATER - 250 ML IVPB ONE (14:43)
[2024-01-17] MEDS ORDERED: ACETAMINOPHEN 325 MG TABLET (FP) PO PRN (14:54)
[2024-01-17] MEDS: ENOXAPARIN NA (PORCINE) 40 MG/0.4 ML DISP.SYRIN SQ SCH (15:30)
[2024-01-17] MEDS: methylPREDNISolone NA SUCC 40 MG/1 ML VIAL IVPUSH SCH (18:45)
[2024-01-17] MEDS: GABAPENTIN 300 MG CAPSULE PO SCH (21:17)
[2024-01-18] MEDS: LEVOTHYROXINE NA 125 MCG TABLET (FP) PO SCH (06:01)
[2024-01-18] MEDS: CEFTRIAXONE 1 GM in DEXTROSE 5%-WATER - 50 ML IVPB SCH (09:10)
[2024-01-18] MEDS: OSELTAMIVIR PHOSPHATE 75 MG CAPSULE PO SCH (09:10)
[2024-01-18] MEDS: PANTOPRAZOLE 40 MG TABLET PO SCH (09:10)
[2024-01-18 09:15] LABS: BASO % 0.1 % (0-2.0); LYMPH % 8.7 % (8-40); MCH 29.8 pg (25.7-33.7); MCHC 33.2 g/dl (32.0-36.0); MEAN CELL VOLUME 89.7 fl (80-96); MEAN PLT VOLUME 7.8 fl (7.5-11.1); NEUT % 87.2 % (42.8-82.8); PLATELET COUNT 263 10^3/uL (134-434); RBC 4.35 M/mm3 (3.60-5.2); RDW 14.3 % (11.6-15.6); WHITE BLOOD COUNT 8.7 K/mm3 (4.0-10.0)
[2024-01-18 09:22] LABS: POTASSIUM 4.2 mmol/L (3.5-5.1)
[2024-01-18 09:24] LABS: CALCIUM 8.4 mg/dL (8.5-10.1)
[2024-01-18 09:25] LABS: ALBUMIN 3.1 g/dl (3.4-5.0); BLOOD UREA NITROGEN 11.6 mg/dL (7-18); MAGNESIUM 2.5 mg/dL (1.8-2.4)
[2024-01-18 09:28] LABS: CREATININE 0.6 mg/dL (0.55-1.3)
[2024-01-18 09:30] LABS: BILIRUBIN,TOTAL 0.3 mg/dL (0.2-1)
[2024-01-18] MEDS ORDERED: [UNRECOGNIZED DRUG - OTHER] SL SCH (11:00)
[2024-01-18] MEDS ORDERED: NALOXONE HCL SL SCH (11:00)
[2024-01-18] MEDS ORDERED: BUPRENORPHINE HCL SL SCH (11:00)
[2024-01-18] MEDS: NALOXONE HCL SL SCH (11:46)
[2024-01-18] MEDS: BUPRENORPHINE HCL SL SCH (11:46)
[2024-01-18] MEDS: [UNRECOGNIZED DRUG - OTHER] SL SCH (11:46)
[2024-01-18] MEDS: ALBUTEROL SO4 0.083% IH SOL 2.5 MG/3 ML VIAL.NEB. NEB PRN (13:01)
[2024-01-18] MEDS: ALBUTEROL SO4 2.5/IPRATROPIUM 0.5 INH SOL 3 ML VIAL.NEB. NEB SCH (15:16)
[2024-01-19] MEDS: SENNOSIDES 8.6MG TABLET (FP) PO SCH (21:24)
[2024-01-19] MEDS: MELATONIN 5 MG TABLETS PO PRN (23:26)
[2024-01-20 15:40] VITALS: BMI 36.1
[2024-01-21 07:25] VITALS: RESP 18
[2024-01-21] MEDS: methylPREDNISolone NA SUCC 40 MG/1 ML VIAL IVPUSH SCH (17:55)
[2024-01-22 07:32] VITALS: PULSE 73
[2024-01-22 15:11] VITALS: BP 134/68; TEMP 98.6
== END 2024-01-22 16:05 | disposition home or self-care (01) | DRG 194 ==
LOC: JER 10:19 → JERBED 14:23 → OBSVTOIN 14:54 → J7W 15:54
PROVIDERS: ADMIT Internal Medicine; ATTEND Internal Medicine
DX: J10.00 Influenza due to other identified influenza virus with unspecified type of pneumonia (principal); J44.1 Chronic obstructive pulmonary disease with (acute) exacerbation; E03.9 Hypothyroidism, unspecified; J45.909 Unspecified asthma, uncomplicated; F17.200 Nicotine dependence, unspecified, uncomplicated; R09.02 Hypoxemia; G47.33 Obstructive sleep apnea (adult) (pediatric)
CPT/HCPCS: 0241U-QW; 36415; 71045-TC-FY; 80053; 82803; 83735; 85025; 85610; 85730; 87899; 93005; 93010; 94010; 94640; 94761; 99285-25; G0378; J0131

== ENCOUNTER 2024-08-09 03:45 | Emergency (ER) | payer BC ==
[2024-08-09 03:58] VITALS: BP 142/79; PULSE 90; RESP 20; TEMP 98; BMI 34.6
[2024-08-09] MEDS ORDERED: ACETAMINOPHEN 325 MG TABLET (FP) ONE (04:19)
[2024-08-09] MEDS: ACETAMINOPHEN 325 MG TABLET (FP) PO ONE (04:22)
[2024-08-09] MEDS ORDERED: LIDOCAINE 5% TOPICAL PATCH ONE (05:25)
[2024-08-09] MEDS ORDERED: DIPHTH,PERTUSS(ACELL),TET 0.5 ML DISP.SYRIN IM ONE (05:26)
[2024-08-09] MEDS: DIPHTH,PERTUSS(ACELL),TET 0.5 ML DISP.SYRIN IM ONE (05:29)
[2024-08-09] MEDS: LIDOCAINE 5% TOPICAL PATCH TP ONE (05:29)
[2024-08-09] MEDS ORDERED: LIDOCAINE PATCH REMOVAL MC SCH (22:00)
== END 2024-08-09 05:30 | disposition home or self-care (01) ==
LOC: JER 03:45
PROC: 3E0234Z Introduction of Serum, Toxoid and Vaccine into Muscle, Percutaneous Approach (ICD-10-PCS; principal; 2024-08-09)
DX: S00.83XA Contusion of other part of head, initial encounter (principal); W01.198A Fall on same level from slipping, tripping and stumbling with subsequent striking against other object, initial encounter; Z23 Encounter for immunization
CPT/HCPCS: 70450-TC; 70486-TC; 72125-TC; 90715; 99284-25

== ENCOUNTER 2024-11-24 04:17 | Day surgery (SDC) | payer BC ==
[2024-11-20 11:51] VITALS: BMI 34.5
[2024-11-24] MEDS ORDERED: LIDOCAINE HCL/PF 1% SDV 5ML VIAL ONE (10:41)
[2024-11-24] MEDS ORDERED: MIDAZOLAM HCL 2 MG/2 ML SINGLE DOSE VIAL ONE (11:55)
[2024-11-24] MEDS: LIDOCAINE HCL 1% PRESERVATIVE FREE - 30ML VIAL IJ ONE ×3 (12:14)
[2024-11-24] MEDS: BUPIVACAINE HCL/PF 0.25% (2.5MG/ML) 10 ML VIAL IJ ONE ×2 (12:14)
[2024-11-24] MEDS ORDERED: ceFAZolin SODIUM 1 GM VIAL ONE (12:21)
[2024-11-24] MEDS: ceFAZolin SODIUM 1 GM VIAL IVPB ONE (12:24)
[2024-11-24 15:24] VITALS: RESP 18
[2024-11-24 16:48] VITALS: BP 118/66; PULSE 71; TEMP 97.7
== END 2024-11-24 14:51 | disposition home or self-care (01) ==
LOC: JASU-SURG 04:17
PROVIDERS: ATTEND Physical Medicine & Rehabilitation
PROC: 00HV3MZ Insertion of Neurostimulator Lead into Spinal Cord, Percutaneous Approach (ICD-10-PCS; principal; 2024-11-24 12:30)
DX: M96.1 Postlaminectomy syndrome, not elsewhere classified (principal); M54.16 Radiculopathy, lumbar region; M48.061 Spinal stenosis, lumbar region without neurogenic claudication
CPT/HCPCS: 63650; C1897; 76000-TC-FY